=== PATIENT | male | born 1965 | race Caucasian/White ===

== ENCOUNTER 2018-06-20 17:53 | Emergency (ER) | payer SELFPAY ==
[~2018-06-20] VITALS: Ht 177.8 cm; Wt 72.6 kg
--- NOTE | 2018-06-20 17:53 | NUR ---
PT WAS BIBRA FOR ETOH, PT WAKES UP AND RESPONDS, UNABLE TO GIVE NAME AT THIS TIME, PT APPEARS INTOXICATED, PUPILS RESPOSIVE TO LIGHT, AWAKENS WITH PAINFUL STIMULI, RESPIRATIONS EVEN AND UNLABORED, NAD NOTED, PT ON MONITOR, VSS, PENDING ER PROVIDER UZIEL
--- NOTE | 2018-06-20 18:43 | NUR ---
Patient is resting comfortably in bed with eyes closed. Easily aroused. VSS
[2018-06-20 18:59] LABS: BASOPHILS # (AUTO) 0.1 /CMM (0.0-0.2); BASOPHILS % (AUTO) 1.4 % (0.0-2.0); EOSINOPHILS % (AUTO) 4.1 % (0.0-6.0); HEMATOCRIT 45 % (39-51); HEMOGLOBIN 14.9 g/dL (13.5-17.5); LYMPHOCYTES # (AUTO) 2.6 /CMM (0.8-4.8); LYMPHOCYTES % (AUTO) 27.7 % (20.0-44.0); MEAN CORPUSCULAR HGB CONC 33 g/dl (31.0-36.0); MEAN CORPUSCULAR VOLUME 92 fL (80-96); MONOCYTES # (AUTO) 0.7 /CMM (0.1-1.30); MONOCYTES % (AUTO) 7.3 % (2.0-12.0); NEUTROPHILS # (AUTO) 5.5 /CMM (1.8-8.9); NEUTROPHILS % (AUTO) 59.5 % (43.0-81.0); PLATELET COUNT (AUTO) 296 /CMM (150-450); RED BLOOD CELL COUNT(AUTO) 4.91 MIL/uL (4.5-6.0); WHITE BLOOD COUNT (AUTO) 9.2 K/uL (4.3-11.0)
[2018-06-20] MEDS ORDERED: HALOPERIDOL LACTATE INJ 5 MG/ML VIAL IM ONE (19:00)
[2018-06-20 19:09] LABS: CALCIUM, SERUM 8.6 mg/dL (8.5-10.1); CARBON DIOXIDE 28 mmol/L (21-32); CHLORIDE 104 mmol/L (98-107); CREATININE 0.6 mg/dL (0.6-1.3); GLUCOSE 97 mg/dL (74-106); POTASSIUM 3.4 mmol/L (3.5-5.1); SODIUM SERUM 142 mmol/L (136-145); UREA NITROGEN, BLOOD 18 mg/dL (7-18)
[2018-06-20] MEDS ORDERED: LIDOCAINE 2% JEL UROJET 10 ML MM ONE (19:14)
[2018-06-20 19:15] LABS: ALANINE AMINOTRANSFERASE 33 U/L (12-78); ALBUMIN 3.3 g/dL (3.4-5.0); ALCOHOL, BLOOD 225 mg/dL (0-0); ALKALINE PHOSPHATASE 126 U/L (46-116); ASPARTATE AMINOTRANSFERASE 26 U/L (15-37); BILIRUBIN,TOTAL 0.2 mg/dL (0.2-1.0); SALICYLATE 1.5 mg/dL (2.8-20.0); TOTAL PROTEIN, SERUM 7.8 g/dL (6.4-8.2)
[2018-06-20 19:16] LABS: ACETAMINOPHEN < 2 ug/ml (10-30)
--- NOTE | 2018-06-20 19:20 | NUR ---
URINE COLLECTED AND SENT TO LAB
[2018-06-20 19:35] LABS: APPEARANCE,URINE Clear (CLEAR); BILIRUBIN,URINE Negative (NEGATIVE); BLOOD, URINE Negative Ery/uL (NEGATIVE); COLOR,URINE Yellow (YELLOW); KETONES,URINE Negative (NEGATIVE); LEUKOCYTE ESTERASE ,URINE Negative (NEGATIVE); NITRITE, URINE Negative (NEGATIVE); PH,URINE 5.5 (5.0-8.0); PROTEIN,URINE Negative (NEGATIVE); UGLUCOSE Negative (NEGATIVE); UROBILINOGEN,URINE 0.2 EU/dL (0.2)
--- NOTE | 2018-06-20 20:20 | NUR ---
Patient is resting comfortably in bed with eyes closed. Easily aroused. VSS
[2018-06-20] MEDS ORDERED: PIPERACILLIN /TAZOBACTAM 3.375 G VIAL IV ONE (20:50)
[2018-06-20] MEDS ORDERED: PIPERACILLIN /TAZOBACTAM 3.375 G in IV D5W 50 ML IV ONE (21:00)
[2018-06-20] MEDS ORDERED: IV NS 0.9% 1,000 ML BAG IV ONE ×3 (21:00→21:30)
[2018-06-20] MEDS ORDERED: VANCOMYCIN 1 GM in IV D5W 250 ML IV ONE (21:00)
[2018-06-20] MEDS ORDERED: VANCOMYCIN 1 GM VIAL ONE (21:16)
--- NOTE | 2018-06-20 21:19 | NUR ---
CALLED NURSING SUP REQUESTED TELE BED FOR THIS PATIENT
[2018-06-20] MEDS ORDERED: CEFTRIAXONE 2 G in IV D5W 50 ML IV SCH (21:30)
[2018-06-20] MEDS ORDERED: LORAZEPAM INJ 2 MG/ML VIAL IVP PRN (21:30)
[2018-06-20] MEDS ORDERED: ACETAMINOPHEN 325 MG TABLET PO PRN (21:30)
[2018-06-20] MEDS ORDERED: ONDANSETRON HCL/PF 4 MG/2 ML VIAL IVP PRN (21:30)
--- NOTE | 2018-06-20 22:54 | NUR ---
Patient is resting comfortably in bed with eyes closed. Easily aroused. VSS
--- NOTE | 2018-06-20 23:03 | NUR ---
ADMIT TO 320-2 MED SURG DX OSTEOMYELITIS ACCEPTING FABRIZIO CALZADA
--- NOTE | 2018-06-20 23:10 | NUR ---
PT REFUSED TO BE TRANSFERRED TO INPATIENT FLOOR, PER PT "I DONT WANT TO STAY", EXPLAINED RISKS AND BENEFITS OF BEING ADMITTED. DR. NICOLE MADE AWARE AND PT WILL SPEAK TO THE PATIENT
--- NOTE | 2018-06-20 23:18 | NUR ---
DR NICOLE AT BEDSIDE TO EXPLAIN TO PT THE NEED TO STAY IN THE HOSPITAL
--- NOTE | 2018-06-20 23:19 | NUR ---
PER DR. NICOLE, PT IS GOING TO SIGN AMA. GIVEN PT FORM, SIGNED BY PT. PATIENT IS AWAKE, ORIENTED, EXPLAINED ALL THE RISKS AND BENEFITS, STILL REFUSED, PT IS AMBULATORY WITH STEADY GAIT, PT LEFT WITH ALL BELONGINGS.
[2018-06-20 23:25] VITALS: BP 119/64
[2018-06-21] MEDS ORDERED: METRONIDAZOLE 500MG/ NS 100ML 100 ML IV SCH (05:00)
[2018-06-21] MEDS ORDERED: PANTOPRAZOLE 40 MG VIAL IV SCH (09:00)
== END 2018-06-20 23:27 | disposition left against medical advice (07) ==
LOC: ER 17:59 → TELE 23:03 → UNDOADMIN 23:03
DX: M86.9 Osteomyelitis, unspecified (principal); F10.129 Alcohol abuse with intoxication, unspecified; R68.3 Clubbing of fingers; I96 Gangrene, not elsewhere classified; F15.10 Other stimulant abuse, uncomplicated; F12.10 Cannabis abuse, uncomplicated; E86.0 Dehydration; R74.0 Nonspecific elevation of levels of transaminase and lactic acid dehydrogenase [LDH]; R79.82 Elevated C-reactive protein (CRP); E87.6 Hypokalemia; R74.8 Abnormal levels of other serum enzymes
CPT/HCPCS: 36415; 71045; 73130; 80048; 80076; 80305; 80329; 81001; 83605 ×2; 84145; 85025; 85652; 86140; 87040 ×2; 93005; 96365; 96368; 96372; 99284; A4606; G0480 ×2; J1630; J2543; J3370; J3490; J7030 ×2; J7040; J7060; Z7610; 81000-TC; 87081-TC; J0696